=== PATIENT | female | born 1990 | race African-American/Black ===

== ENCOUNTER 2017-06-27 14:34 | Emergency (ER) | payer MEDICAID ==
[~2017-06-27] VITALS: Ht 172.7 cm; Wt 57.2 kg
[2017-06-27 14:38] VITALS: BP 117/50; Ht 172.7 cm; Wt 57.2 kg
== END 2017-06-27 18:26 | disposition home or self-care (01) ==
LOC: ED 14:34
DX: N76.0 Acute vaginitis (principal); M41.9 Scoliosis, unspecified
CPT/HCPCS: 87491; 87591